=== PATIENT | male | born 2000 | race Caucasian/White ===

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

== ENCOUNTER 2022-03-31 15:03 | Emergency (ER) | payer BC ==
[~2022-03-31] VITALS: Ht 157.5 cm; Wt 59.0 kg
[2022-03-31 15:08] VITALS: BP 108/73
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
[2022-03-31] MEDS ORDERED: IOHEXOL 350 MG/ML 100 ML (OMNIPAQUE 350) VIAL IV ONE (15:30)
[2022-03-31] MEDS ORDERED: NS 100 ML (IVPB) BAG IV ONE (15:30)
[2022-03-31] MEDS ORDERED: CATHETER FLUSH 10 ML SYR IV PRN (15:30)
[2022-03-31] MEDS ORDERED: NS IV 500 ML 500 ML IV ONE (15:30)
[2022-03-31] MEDS ORDERED: KETOROLAC 30 MG/ML VIAL IVP ONE (15:30)
[2022-03-31 15:38] LABS: BASOPHILS % (AUTO) 0 % (0-10); EOSINOPHILS % (AUTO) 0 % (0-10); HEMATOCRIT 40 % (40-54); HEMOGLOBIN 13.5 g/dL (13.3-17.7); LYMPHOCYTES # (AUTO) 0.9 X 10^3 (1.0-4.0); LYMPHOCYTES % (AUTO) 12 % (12-44); MEAN CORPUSCULAR HEMOGLOBIN 30 pg (25-34); MEAN CORPUSCULAR HGB CONC 34 g/dL (32-36); MEAN CORPUSCULAR VOLUME 90 fL (80-99); MONOCYTES # (AUTO) 0.3 X 10^3 (0.0-1.0); MONOCYTES % (AUTO) 4 % (0-12); NEUTROPHILS # (AUTO) 6.3 X 10^3 (1.8-7.8); NEUTROPHILS % (AUTO) 84 % (42-75); PLATELET COUNT 260 10^3/uL (130-400); WHITE BLOOD COUNT 7.6 10^3/uL (4.3-11.0)
[2022-03-31 16:00] LABS: ALBUMIN 4.3 GM/DL (3.2-4.5); POTASSIUM 3.9 MMOL/L (3.6-5.0)
[2022-03-31 16:01] LABS: CALCIUM 9.3 MG/DL (8.5-10.1)
[2022-03-31 16:02] LABS: TOTAL PROTEIN 7.7 GM/DL (6.4-8.2)
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
[2022-03-31 16:04] LABS: BILIRUBIN,TOTAL 0.5 MG/DL (0.1-1.0)
[2022-03-31 16:06] LABS: CREATININE SERUM 0.78 MG/DL (0.60-1.30)
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
[2022-03-31] MEDS ORDERED: NAPR-1071 PO (17:01)
== END 2022-03-31 17:15 | disposition home or self-care (01) ==
LOC: EDUNIT# 15:03 → ER 15:05
DX: S20.211A Contusion of right front wall of thorax, initial encounter (principal); S00.12XA Contusion of left eyelid and periocular area, initial encounter; S00.11XA Contusion of right eyelid and periocular area, initial encounter; Y04.0XXA Assault by unarmed brawl or fight, initial encounter
CPT/HCPCS: 36415; 71100; 74177; 80053; 85025; 96374